=== PATIENT | male | born 1965 | race Two or more races ===

== ENCOUNTER 2018-11-12 17:12 | Emergency (ER) | payer SELFPAY ==
[~2018-11-12] VITALS: Ht 165.1 cm; Wt 86.0 kg
[2018-11-12 17:14] VITALS: BP 168/98
== END 2018-11-13 00:03 | disposition left against medical advice (07) ==
LOC: ER 17:14
DX: Z53.21 Procedure and treatment not carried out due to patient leaving prior to being seen by health care provider (principal)